=== PATIENT | male | born 1935 | race Caucasian/White ===

== ENCOUNTER 2021-05-16 15:00 | Inpatient (IN) ==
[2021-05-16] MEDS ORDERED: IOPAMIDOL 100 ML BOTTLE IV ONE ×2 (15:01→18:24)
--- NOTE | 2021-05-16 16:03 | XRay Report ---
INDICATION: dyspnea TECHNIQUE: AP portable semiupright chest x-ray COMPARISON: Previous examinations dated 12/16/2020, 10/21/2017, 06/25/2015 FINDINGS:Left transvenous pacemaker leads are unchanged since previous examination Lungs:Mild bibasilar atelectasis or infiltrate. Mid and upper lungs are negative. No parenchymal consolidation or mass. Heart, vascular:No significant cardiomegaly. Pulmonary vascularity is normal. No pulmonary edema or pulmonary congestion Mediastinum, arash:No mediastinal widening. No hilar mass Pleura:No pleural fluid. No pleural-based mass or calcification Skeletal:Negative. IMPRESSION: 1. Mild right basilar atelectasis or infiltrate 2. Otherwise negative AP chest x-ray Interpreted and Authenticated by: Hilaroi Triana 05/16/21
[2021-05-16 16:13] LABS: Basophils # (Auto) 0.03 K/mcL (0.00-0.30); Basophils % (Auto) 0.5 % (0.0-2.0); Eosinophils # (Auto) 0 K/mcL (0.00-0.70); Eosinophils % (Auto) 0 % (0.0-7.0); Hematocrit 37.5 % (40.1-51.0); Hemoglobin 13.1 g/dL (13.7-17.5); Lymphocytes % (Auto) 21.2 % (15.5-49.0); Mean Cell Volume 93.3 fL (80.0-100.0); Mean Corpuscular HGB Conc 34.9 g/dL (31.0-36.0); Monocytes % (Auto) 17.7 % (1.0-12.0); Neutrophils % (Auto) 60.6 % (38.0-78.0); Platelet Count 166 K/mcL (140-440); RBC 4.02 M/mcL (4.63-6.08); Red Cell Distribution Width 12.4 % (11.5-14.5); WBC 5.7 K/mcL (4.5-11.0)
[2021-05-16 16:36] LABS: ALT/SGPT 10 U/L (<40); AST/SGOT 17 U/L (<40); Albumin 3.3 gm/dL (3.2-5.2); Alkaline Phosphatase 39 U/L (39-117); Bilirubin,Total 0.2 mg/dL (0.1-1.0); Blood Urea Nitrogen 10 mg/dL (8-23); Calcium 8.8 mg/dL (8.6-10.4); Carbon Dioxide 24 mmol/L (22-30); Chloride 91 mmol/L (96-108); Globulin 3.4 gm/dL (2.2-3.7); Glomerular Filtration Rate 61; Glucose 89 mg/dL (70-105)
[2021-05-16] MEDS ORDERED: DEXAMETHASONE 4 MG TABLET PO ONE (16:37)
[2021-05-16] MEDS ORDERED: 0.9 % SODIUM CHLORIDE 1,000 ML IV ONE (16:37)
--- NOTE | 2021-05-16 17:00 | Emergency Department Note ---
HPI General Chief complaint: Cold/Flu Symptoms Stated complaint: body aches, cough Time Seen by Provider: 05/16/21 15:02 Source: patient Mode of arrival: ambulatory Limitations: no limitations History of Present Illness HPI Narrative: Narrative: 86-year-old male with history of hypertension, presumed atrial fibrillation based on his medications and permanent pacemaker, presents to the emergency department for evaluation of cough and body aches for the past 3 to 4 days. He denies any definite fever or chills. He does have some very mild shortness of breath when he is coughing. He denies abdominal pain or nausea. He has had Hiri vaccination, [employer] several months ago. He does have some mild GI upset, no radha abdominal pain nausea or vomiting Related Data Home Medications Medication Instructions Recorded Confirmed melatonin 3 mg tablet 3 mg PO HS PRN 01/17/17 04/29/21 multivitamin 1 tab-cap PO QDAY 01/17/17 04/29/21 apixaban 5 mg tablet 5 mg PO BID 06/15/18 04/29/21 omeprazole 20 mg capsule,delayed 20 mg PO QDAY 04/03/19 04/29/21 release Previous Rx's Medication Instructions Recorded diltiazem HCl 120 mg capsule,24 120 mg PO QDAY #90 cap 05/06/20 hr,extended release tamsulosin 0.4 mg capsule 0.4 mg PO QDAY #90 cap 03/17/21 Venessa Stim See Rx Instructions .ROUTE 04/29/21 .COMPLEX #1 cap Allergies Allergy/AdvReac Type Severity Reaction Status Date / Time codeine Allergy Unknown Itching Verified 04/29/21 14:12 Review of Systems ROS ROS Narrative: Narrative: All systems ED: reviewed and negative except as stated. PFS Narrative Patient History Narrative: Narrative: Medical/Surgical/Family History All Active Problems (Updated 05/16/21 @ 17:00 by Sd Wright DO) Pneumonia due to 2019 novel coronavirus (Acute) Acute hyponatremia (Acute) Hyperthyroidism (Acute) Syncope (Acute) CKD (chronic kidney disease) (Acute) Annual physical exam (Acute) Medicare annual wellness visit, subsequent (Acute) Bronchitis (Acute) Hx of tonsillectomy (Acute) S/P cardiac pacemaker procedure (Acute) History of lumbar surgery (Acute) History of right knee joint replacement (Acute) History of left knee replacement (Acute) Hx of inguinal hernia repair (Acute) Hx of adenoidectomy (Acute) Sinoatrial node dysfunction (Chronic) Palpitations (Chronic) Osteoarthritis (Chronic) Hypertension, essential (Chronic) Hyperlipemia (Chronic) Hearing loss (Chronic) Gout (Chronic 09/13/14) Gastroesophageal reflux (Chronic) Gastritis (Chronic 10/14/14) Hx of colonic polyps (Chronic) Bladder neck obstruction (Chronic) Atrial fibrillation (Chronic) Medical History Annual physical exam Atrial fibrillation Bladder neck obstruction CKD (chronic kidney disease) Gastritis (10/14/14) Gastroesophageal reflux Gout (09/13/14) Hearing loss Hx of colonic polyps Hyperlipemia Hypertension, essential Hyperthyroidism Medicare annual wellness visit, subsequent Osteoarthritis Palpitations Sinoatrial node dysfunction Syncope Surgical History History of left knee replacement History of lumbar surgery History of right knee joint replacement Hx of adenoidectomy Hx of inguinal hernia repair Hx of tonsillectomy S/P cardiac pacemaker procedure 10/2010 [facility] ([facility]) Family History none listed Diabetes mellitus father Essential hypertension Malignant neoplasm of prostate Cerebrovascular accident (CVA) mother Transient cerebral ischemia Social History Smoking Status: Former smoker Alcohol Intake Frequency: 2+ drinks per day Exam Narrative Narrative: Narrative: General Limitations: no limitations General appearance: Present alert Head Head: Present atraumatic and normocephalic Eye Eye: Present normal appearance and EOMI ENT ENT: Present normal exam and mucous membranes moist Neck Neck: Present normal inspection and full ROM Chest Chest: Present normal inspection and symmetric chest wall rise Respiratory Respiratory: Present normal lung sounds bilaterally Cardiovascular Cardiovascular: Present regular rate and normal rhythm Adbominal Abdominal: Present soft; Absent tenderness Extremities Extremities: Present normal inspection and full ROM Neurological Neurological: Present alert, oriented X3 and normal gait Psychiatric Psychiatric: Present normal affect and normal mood Skin Skin: Present warm (WNL) and dry Course Vital Signs Vital signs: Vital Signs Temperature 98.6 F 05/16/21 15:01 Pulse Rate 68 05/16/21 15:01 Respiratory Rate 16 05/16/21 15:01 Blood Pressure 126/70 05/16/21 15:01 Pulse Oximetry (%) 96 05/16/21 15:01 Temperature 98.6 F 05/16/21 15:01 Pulse Rate 70 05/16/21 16:32 Respiratory Rate 18 05/16/21 16:32 Blood Pressure 118/68 05/16/21 16:32 Pulse Oximetry (%) 96 05/16/21 16:32 [facility] MDM Narrative Medical decision making narrative: Narrative: Patient is overall well-appearing, but has borderline oxygen saturation at about 93% on room air. Will test for Covid, obtain baseline labs, chest x-ray. Covid testing was positive, he was found to be moderately hyponatremic with a sodium of 124. He was given a liter of fluid and dexamethasone for borderline hypoxia. Will place in observation to monitor his status Lab Data Result diagrams: 05/16/21 15:28 05/16/21 15:28 Labs: Lab Results 05/16/21 05/16/21 05/16/21 Range/Units 15:28 15:28 15:28 WBC 5.7 (4.5-11.0) K/mcL RBC 4.02 L (4.63-6.08) M/mcL Hgb 13.1 L (13.7-17.5) g/dL Hct 37.5 L (40.1-51.0) % MCV 93.3 (80.0-100.0) fL MCH 32.6 (26.0-34.0) pg MCHC 34.9 (31.0-36.0) g/dL RDW 12.4 (11.5-14.5) % Plt Count 166 (140-440) K/mcL MPV 10.0 (7.4-10.4) fL Neut % (Auto) 60.6 (38.0-78.0) % Lymph % (Auto) 21.2 (15.5-49.0) % [place] % (Auto) 17.7 H (1.0-12.0) % Eos % (Auto) 0 (0.0-7.0) % Baso % (Auto) 0.5 (0.0-2.0) % Lymph # (Auto) 1.20 L (1.50-4.80) K/mcL [place] # (Auto) 1.00 H (0.10-0.90) K/mcL Eos # (Auto) 0 (0.00-0.70) K/mcL Baso # (Auto) 0.03 (0.00-0.30) K/mcL Absolute Neutrophils 3.42 (1.80-8.00) K/mcL D-Dimer 2.97 H (0.27-0.50) ug/mL Sodium 124 L (133-145) mmol/L Potassium 3.6 (3.3-5.1) mmol/L Chloride 91 L (96-108) mmol/L Carbon Dioxide 24 (22-30) mmol/L Anion Gap 9.0 (8.0-16.0) BUN 10 (8-23) mg/dL Creatinine 1.1 (0.7-1.2) mg/dL GFR Calculation 61 Glucose 89 (70-105) mg/dL Calcium 8.8 (8.6-10.4) mg/dL Total Bilirubin 0.2 (0.1-1.0) mg/dL AST 17 (<40) U/L ALT 10 (<40) U/L Alkaline Phosphatase 39 (39-117) U/L Troponin T (<0.03) ng/mL Total Protein 6.7 (5.9-8.4) gm/dL Albumin 3.3 (3.2-5.2) gm/dL Globulin 3.4 (2.2-3.7) gm/dL Albumin/Globulin Ratio 1.0 (1.0-2.3) 05/16/21 Range/Units 15:28 WBC (4.5-11.0) K/mcL RBC (4.63-6.08) M/mcL Hgb (13.7-17.5) g/dL Hct (40.1-51.0) % MCV (80.0-100.0) fL MCH (26.0-34.0) pg MCHC (31.0-36.0) g/dL RDW (11.5-14.5) % Plt Count (140-440) K/mcL MPV (7.4-10.4) fL Neut % (Auto) (38.0-78.0) % Lymph % (Auto) (15.5-49.0) % [place] % (Auto) (1.0-12.0) % Eos % (Auto) (0.0-7.0) % Baso % (Auto) (0.0-2.0) % Lymph # (Auto) (1.50-4.80) K/mcL [place] # (Auto) (0.10-0.90) K/mcL Eos # (Auto) (0.00-0.70) K/mcL Baso # (Auto) (0.00-0.30) K/mcL Absolute Neutrophils (1.80-8.00) K/mcL D-Dimer (0.27-0.50) ug/mL Sodium (133-145) mmol/L Potassium (3.3-5.1) mmol/L Chloride (96-108) mmol/L Carbon Dioxide (22-30) mmol/L Anion Gap (8.0-16.0) BUN (8-23) mg/dL Creatinine (0.7-1.2) mg/dL GFR Calculation Glucose (70-105) mg/dL Calcium (8.6-10.4) mg/dL Total Bilirubin (0.1-1.0) mg/dL AST (<40) U/L ALT (<40) U/L Alkaline Phosphatase (39-117) U/L Troponin T < 0.01 (<0.03) ng/mL Total Protein (5.9-8.4) gm/dL Albumin (3.2-5.2) gm/dL Globulin (2.2-3.7) gm/dL Albumin/Globulin Ratio (1.0-2.3) ED POC Tests ED POC Tests: KAYLEE - SARS Antigen Positive EKG Data EKG #1: EKG attestation: Yes I reviewed and interpreted this EKG. EKG results narrative: Sinus rhythm at a rate of 63. Normal axis. QTC 418. First-degree AV block. Right bundle branch block. Appropriate ST discordance. No acute ST-T changes. Abnormal EKG. Discharge Plan Patient/Caregiver Discharge Instructions Pt seen by NUCLEAR POWERPLANT SUPERVISOR/PA only: No Clinical Impression: Pneumonia due to 2019 novel coronavirus, Acute hyponatremia Patient Disposition: Xfer As Inpt ([facility]) Follow up with: Emil Hernadez MD [Primary Care Provider] - Prescriptions: No Action diltiazem HCl [Taztia XT] 120 mg capsule,extended release 24 hr 120 mg PO QDAY Qty: 90 RF: 3 tamsulosin [Flomax] 0.4 mg capsule 0.4 mg PO QDAY Qty: 90 RF: 1 melatonin 3 mg tablet 3 mg PO HS PRNRF: 0 multivitamin tablet 1 tab-cap PO QDAY RF: 0 apixaban [Eliquis] 5 mg tablet 5 mg PO BID RF: 0 omeprazole 20 mg capsule,delayed release(DR/EC) 20 mg PO QDAY RF: 0 Venessa Stim See Rx Instructions .ROUTE .COMPLEX Qty: 1 RF: 0
--- NOTE | 2021-05-16 17:15 | Cat Scan Report ---
INDICATION: inc dimer, covid COMPARISON: Chest x-rays dated 05/16/2021, 12/16/2020, 10/21/2017 TECHNIQUE: Axial images obtained through the chest. 80ml Isovue 370 injected intravenously, and scanning was performed during pulmonary arterial phase. Sagittally and coronally reformatted images were obtained. MIP reformatted images. FINDINGS: Lungs:There is mild centrilobular emphysema. There are groundglass infiltrates at both lung bases. Appearance is nonspecific. This may be due to hypoexpansion at both lung bases. Covid pneumonia is considered less likely. Mediastinum, vascular:Main pulmonary artery, right pulmonary artery, left pulmonary artery are negative. No intraluminal filling defects. No lobar, segmental, or subsegmental emboli. Thoracic aorta is negative. No aneurysmal dilatation No pathologic mediastinal or hilar adenopathy Heart:No cardiomegaly. No pericardial effusion. There is mild reflux of contrast material into the inferior vena cava Pleura:No significant pleural effusion. No pleural mass or calcification Axilla, supraclavicular regions, chest wall:No pathologic axillary or supraclavicular adenopathy. Musculoskeletal:Negative thoracic spine. No compression fracture. No lytic lesion. No rib or sternal lesions Upper Abdomen:Negative IMPRESSION: 1. Negative pulmonary CTA 2. Mild centrilobular emphysema 3. Bilateral lower lobe ground glass infiltrates are probably related to atelectasis. Covid pneumonia is possible The exam was performed using radiation dose optimization techniques including, but not limited to, automated exposure control, adjustment of the mA and/or kV according to patient size and use of iterative reconstruction technique. Interpreted and Authenticated by: Hilario Triana 05/16/21
--- NOTE | 2021-05-16 17:22 | Internal Med History&Physical ---
HPI History of Present Illness Patient information: Note initiated : 05/16/21 at 5:14 pm Service Date, if different from initiated Date: [] Patient: Leander Galan 86 y/o M admitted on for Body Aches, Cough. Chief Complaint: [hyponatremia] History of present illness: Mr. Galan is a 86 year old M history of atrial fibrillation, BPH, presenting with 4-day history of nonproductive cough, general body weakness, and body aches. He is vaccinated against Covid pneumonia. Over the past 4 days, he is committing of nonproductive cough, general body weakness, and body aches. He denies any shortness of breath or respiratory wheezings. He denies any chest pain. He denies any subjective fever or shaking chills or diaphoresis. He denies any GI symptoms such as nausea, vomiting, diarrhea, or constipation's. He decided to come to our ED today to test for Covid pneumonia. He has been tested positive for Covid pneumonia. Vital signs at ED presentations within normal limits and he is currently in sinus rhythm. Labs significant for lack of leukocytosis with WBC 5.7. Chemistry significant for hyponatremia with serum sodium level 125 with baseline 135. Chest x-ray unremarkable. He is currently tolerating room air with oxygen saturations low to mid 90s. Constitutional Constitutional: Present weakness; Absent chills, excessive sweating, fatigue and fever(s) EENT Eyes: Absent blurry vision, change in vision, loss of vision and other visual disturbances Ears: Absent decreased hearing and tinnitus Nose, mouth and throat: Absent abnormal hearing, dry mouth, headache(s), nasal congestion and sore throat Cardiovascular Cardiovascular: Absent chest pain, chest pain at rest, edema, irregular heart rhythm and palpatations Respiratory Respiratory: Present cough; Absent dyspnea, wheezing and excessive phlegm production Gastrointestinal Gastrointestinal: Absent abdominal pain, constipation, diarrhea, nausea and vomiting Musculoskeletal Musculoskeletal: Present muscle cramps; Absent back pain, deformity, limited range of motion, muscle weakness and numbness Integumentary Integumentary: Absent lesions, rash and wounds Neurological Neurological: Absent focal weakness, headache(s) and numbness Psychiatric Psychiatric: Absent anxiety, depression and hallucinations PFSH PFSH All Active Problems (Updated 05/16/21 @ 17:19 by Adryan Tejeda MD) BPH (benign prostatic hyperplasia) (Acute) Pneumonia due to 2019 novel coronavirus (Acute) Acute hyponatremia (Acute) Hyperthyroidism (Acute) Syncope (Acute) CKD (chronic kidney disease) (Acute) Annual physical exam (Acute) Medicare annual wellness visit, subsequent (Acute) Bronchitis (Acute) Hx of tonsillectomy (Acute) S/P cardiac pacemaker procedure (Acute) History of lumbar surgery (Acute) History of right knee joint replacement (Acute) History of left knee replacement (Acute) Hx of inguinal hernia repair (Acute) Hx of adenoidectomy (Acute) Sinoatrial node dysfunction (Chronic) Palpitations (Chronic) Osteoarthritis (Chronic) Hypertension, essential (Chronic) Hyperlipemia (Chronic) Hearing loss (Chronic) Gout (Chronic 09/13/14) Gastroesophageal reflux (Chronic) Gastritis (Chronic 10/14/14) Hx of colonic polyps (Chronic) Bladder neck obstruction (Chronic) Atrial fibrillation (Chronic) Medical History Annual physical exam Atrial fibrillation Bladder neck obstruction CKD (chronic kidney disease) Gastritis (10/14/14) Gastroesophageal reflux Gout (09/13/14) Hearing loss Hx of colonic polyps Hyperlipemia Hypertension, essential Hyperthyroidism Medicare annual wellness visit, subsequent Osteoarthritis Palpitations Sinoatrial node dysfunction Syncope Surgical History History of left knee replacement History of lumbar surgery History of right knee joint replacement Hx of adenoidectomy Hx of inguinal hernia repair Hx of tonsillectomy S/P cardiac pacemaker procedure 10/2010 [facility]) Family History none listed Diabetes mellitus father Essential hypertension Malignant neoplasm of prostate Cerebrovascular accident (CVA) mother Transient cerebral ischemia Social History (Updated 04/29/21 @ 14:09 by Chioma Sarah CMA) marital status: education level: high school occupational status: retired occupation: semi retired smoking status: Former smoker alcohol intake frequency: 2+ drinks per day MEDS/ALLERGIES Home Medications and Allergies Home Medications Medication Instructions Recorded Confirmed Type melatonin 3 mg tablet 3 mg PO HS PRN 01/17/17 04/29/21 History multivitamin 1 tab-cap PO QDAY 01/17/17 04/29/21 History apixaban 5 mg tablet 5 mg PO BID 06/15/18 04/29/21 History omeprazole 20 mg capsule,delayed 20 mg PO QDAY 04/03/19 04/29/21 History release diltiazem HCl 120 mg capsule,24 120 mg PO QDAY #90 cap 05/06/20 04/29/21 Rx hr,extended release tamsulosin 0.4 mg capsule 0.4 mg PO QDAY #90 cap 03/17/21 04/29/21 Rx Venessa Stim See Rx Instructions .ROUTE 04/29/21 04/29/21 Rx .COMPLEX #1 cap Allergies Allergy/AdvReac Type Severity Reaction Status Date / Time codeine Allergy Unknown Itching Verified 04/29/21 14:12 EXAM Constitutional Vitals: Temp Pulse Resp BP Pulse Ox 37.0 C 70 18 118/68 96 05/16/21 15:01 05/16/21 16:32 05/16/21 16:32 05/16/21 16:32 05/16/21 16:32 General appearance: cooperative and no acute distress Head Head exam: Present atraumatic and normocephalic Eye Eye exam: Present EOMI and PERRL ENT ENT exam: Present mucous membranes moist and normal external ear exam; Absent normal exam Additional comments: bilateral hard of hearing Neck Neck exam: Present normal inspection; Absent lymphadenopathy, tenderness and thyromegaly Respiratory Respiratory exam: Present rhonchi; Absent accessory muscle use, respiratory distress and wheezes Cardiovascular Cardiovascular exam: Present normal rate and rhythm; Absent JVD GI/Abdominal GI/Abdominal exam: Present normal bowel sounds and soft; Absent organomegaly and tenderness Rectal Rectal exam: Present deferred Extremities Exam Extremities exam: Present full ROM, normal capillary refill and normal inspe ction; Absent tenderness Neurological Exam Neurological exam: Present alert, CN II-XII intact and oriented X3; Absent motor sensory deficit Psychiatric Psychiatric exam: Present normal affect and normal mood; Absent anxious and depressed Skin Skin exam: Present dry and intact DATA Data Completed and Pending Labs: Labs from last 24 hours 05/16/21 05/16/21 05/16/21 15:28 15:28 15:28 WBC RBC Hgb Hct MCV MCH MCHC RDW Plt Count MPV Neut % (Auto) Lymph % (Auto) [place] % (Auto) Eos % (Auto) Baso % (Auto) Lymph # (Auto) [place] # (Auto) Eos # (Auto) Baso # (Auto) Absolute Neutrophils D-Dimer 2.97 H Sodium 124 L Potassium 3.6 Chloride 91 L Carbon Dioxide 24 Anion Gap 9.0 BUN 10 Creatinine 1.1 GFR Calculation 61 Glucose 89 Calcium 8.8 Total Bilirubin 0.2 AST 17 ALT 10 Alkaline Phosphatase 39 Troponin T < 0.01 Total Protein 6.7 Albumin 3.3 Globulin 3.4 Albumin/Globulin Ratio 1.0 05/16/21 15:28 WBC 5.7 RBC 4.02 L Hgb 13.1 L Hct 37.5 L MCV 93.3 MCH 32.6 MCHC 34.9 RDW 12.4 Plt Count 166 MPV 10.0 Neut % (Auto) 60.6 Lymph % (Auto) 21.2 [place] % (Auto) 17.7 H Eos % (Auto) 0 Baso % (Auto) 0.5 Lymph # (Auto) 1.20 L [place] # (Auto) 1.00 H Eos # (Auto) 0 Baso # (Auto) 0.03 Absolute Neutrophils 3.42 D-Dimer Sodium Potassium Chloride Carbon Dioxide Anion Gap BUN Creatinine GFR Calculation Glucose Calcium Total Bilirubin AST ALT Alkaline Phosphatase Troponin T Total Protein Albumin Globulin Albumin/Globulin Ratio A/P Assessment and plan (1) Acute hyponatremia: Status: Acute (2) Pneumonia due to 2019 novel coronavirus: Status: Acute (3) Atrial fibrillation: Status: Chronic (4) Gastroesophageal reflux: Status: Chronic (5) BPH (benign prostatic hyperplasia): Status: Acute Narrative A/P Narrative: Assessment and plan: 1. Acute hyponatremia: Inpatient MedSurg Differential diagnosis: Secondary to Covid infection versus endocrine cause suggest SIADH versus medication side effect but the patient is not currently on any obvious culprits such as diuretics or SSRI TSH Urine osmolality and urine sodium level to rule out SIADH Normal saline at 75 cc/h BMP every 8 hour to trend serum sodium level with goals of corrections 8-10 points over the first 24 hours in order to avoid neurological consequences such as central pontine myelinolysis 2. Covid pneumonia: Patient is currently tolerating room air with acceptable SPO2 level, thus no Covid specific treatment such as remdesivir or dexamethasone indicated at this point Continue isolation protocols with our prone and contact isolation Robitussin-DM as needed cough Tylenol as needed fever DuoNeb nebulizer as needed wheezing 3. Stable atrial fibrillation: Continue diltiazem orally from home regiment Continue Eliquis 4. History of BPH: Continue Flomax 5. GERD: Continue oral PPI from home regimen GI prophylaxis: Continue oral PPI from home regimen DVT prophylaxis: Eliquis CODE STATUS: Full code Prognosis: Stable Dispositions: Inpatient MedSurg Time Spent With Patient Time: Total time spent is greater than 50% in coordination of care (as documented) at patient's floor/unit and/or counseling patient: Total time spent with greater than 50% in coordination of care (as documented) at patient's floor/unit and/or counseling patient:: 25 - 35 minutes
[2021-05-16] MEDS ORDERED: ONDANSETRON 4 MG/2 ML VIAL IV PRN (18:24)
[2021-05-16] MEDS ORDERED: ACETAMINOPHEN 325 MG TABLET PO PRN (18:24)
[2021-05-16] MEDS ORDERED: guaiFENesin/DEXTROMETHORPHAN ORAL SOL PO PRN (18:24)
[2021-05-16] MEDS ORDERED: MELATONIN 3 MG TABLET PO PRN (18:24)
[2021-05-16] MEDS ORDERED: ZOLPIDEM 5 MG TABLET PO PRN (18:24)
[2021-05-16] MEDS ORDERED: IPRATROPIUM/ALBUTEROL 3 ML AMPUL.NEB NEB PRN (18:24)
[2021-05-16] MEDS: 0.9 % SODIUM CHLORIDE 1,000 ML IV SCH (18:52)
[2021-05-16 19:10] LABS: Thyroid Stimulating Hormone 1.64 uIU/mL (0.27-5.01)
[2021-05-16 19:31] LABS: Sodium, Urine Random 45 mmol/L
[2021-05-16 19:58] LABS: Osmolality,Urine 345 mOSM/kg (80-1000)
[2021-05-16] MEDS ORDERED: SENNOSIDES 1 TABLET PO SCH (21:00)
[2021-05-16 22:32] LABS: Blood Urea Nitrogen 10 mg/dL (8-23); Calcium 8.7 mg/dL (8.6-10.4); Carbon Dioxide 23 mmol/L (22-30); Chloride 94 mmol/L (96-108); Glomerular Filtration Rate 69; Glucose 122 mg/dL (70-105)
[2021-05-16] MEDS: DOCUSATE SODIUM 100 MG CAPSULE PO SCH (22:36)
[2021-05-16] MEDS: 0.9 % SODIUM CHLORIDE 10 ML SYRINGE IV SCH (22:36)
[2021-05-16] MEDS: APIXABAN 5 MG TABLET PO SCH (22:36)
[2021-05-17] MEDS: 0.9 % SODIUM CHLORIDE 10 ML SYRINGE IV SCH (05:31)
[2021-05-17 07:44] LABS: ALT/SGPT 12 U/L (<40); AST/SGOT 19 U/L (<40); Albumin 3.3 gm/dL (3.2-5.2); Albumin/Globulin Ratio 0.9 (1.0-2.3); Alkaline Phosphatase 38 U/L (39-117); Bilirubin,Total 0.2 mg/dL (0.1-1.0); Blood Urea Nitrogen 11 mg/dL (8-23); Calcium 8.9 mg/dL (8.6-10.4); Carbon Dioxide 23 mmol/L (22-30); Chloride 97 mmol/L (96-108); Globulin 3.7 gm/dL (2.2-3.7); Glomerular Filtration Rate 69; Glucose 137 mg/dL (70-105)
[2021-05-17] MEDS: APIXABAN 5 MG TABLET PO SCH (08:08)
[2021-05-17] MEDS: 0.9 % SODIUM CHLORIDE 1,000 ML IV SCH (08:08)
[2021-05-17] MEDS: DOCUSATE SODIUM 100 MG CAPSULE PO SCH (08:09)
[2021-05-17] MEDS ORDERED: MULTIVIT,THER IRON,CA,FA & MIN 1 TABLET PO SCH (09:00)
[2021-05-17] MEDS ORDERED: DILTIAZEM 120 MG CAP.XL.24H PO SCH (09:00)
[2021-05-17] MEDS ORDERED: TAMSULOSIN 0.4 MG CAPSULE PO SCH (09:00)
[2021-05-17] MEDS ORDERED: OMEPRAZOLE 20 MG CAPSULE PO SCH (09:00)
--- NOTE | 2021-05-17 11:40 | Discharge Summary ---
Discharge Provider Provider Patient information: Note initiated : 05/17/21 at 11:38 am Service Date, if different from initiated Date: [] Patient: Leander Galan 86 y/o M admitted on 05/16/21 for Body Aches, Cough. Chief Complaint: [hyponatremia] History of present illness: Mr. Galan is a 86 year old M history of atrial fibrillation, BPH, presenting with 4-day history of nonproductive cough, general body weakness, and body aches. He is vaccinated against Covid pneumonia. Over the past 4 days, he is committing of nonproductive cough, general body weakness, and body aches. He denies any shortness of breath or respiratory wheezings. He denies any chest pain. He denies any subjective fever or shaking chills or diaphoresis. He denies any GI symptoms such as nausea, vomiting, diarrhea, or constipation's. He decided to come to our ED today to test for Covid pneumonia. He has been tested positive for Covid pneumonia. Vital signs at ED presentations within normal limits and he is currently in sinus rhythm. Labs significant for lack of leukocytosis with WBC 5.7. Chemistry significant for hyponatremia with serum sodium level 125 with baseline 135. Chest x-ray unremarkable. He is currently tolerating room air with oxygen saturations low to mid 90s. Date of admission: 05/16/21 17:56 Discharge date: 05/17/21 Primary care physician: Emil Hernadez MD Consults: 05/16/21 Consult to Physician [CONS] Stat Comment: Consulting Provider: Adryan Tejeda Reason For Exam: Physician to Consult Discharge Meds Discharge Medications Home Medications melatonin 3 mg tablet 3 mg PO HS PRN 01/17/17 [History Confirmed 05/17/21 Last Taken 05/15/21] multivitamin 1 tab-cap PO QDAY 01/17/17 [History Confirmed 05/17/21 Last Taken 05/16/21 08:00] apixaban 5 mg tablet 5 mg PO BID 06/15/18 [History Confirmed 05/17/21 Last Taken 05/16/21 08:00] omeprazole 20 mg capsule,delayed release 20 mg PO QDAY 04/03/19 [History Confirmed 05/17/21 Last Taken 05/16/21 08:00] diltiazem HCl 120 mg capsule,24 hr,extended release 120 mg PO QDAY #90 cap 05/06/20 [Rx Confirmed 05/17/21 Last Taken 05/16/21 08:00] tamsulosin 0.4 mg capsule 0.4 mg PO QDAY #90 cap 03/17/21 [Rx Confirmed 05/17/21 Last Taken 05/16/21 08:00] Venessa Stim See Rx Instructions .ROUTE .COMPLEX #1 cap 04/29/21 [Rx Confirmed 05/17/21 Last Taken Unknown] COURSE Hospital Course Hospital course: Patient was admitted on May 16, 2021 for hyper natremia with serum sodium level of 124. Normal saline at 75 cc/h infusions was implemented alongside with frequent BMP checked to ensure that the rate of correction was within the goals of 8-10 points over the first 24 hours. By the next day, his serum sodium level improved to 131, and otherwise remained to be clinically stable. TSH level normal. Urine osmolality 345. Random urine sodium level 45. Decision made to discharge patient home with instruction to follow-up with primary care physician within 2 weeks. All questions were answered prior to patient being physically discharged. Patient improved sooner than expectations that is why he was discharged on day to hospitalizations. Discharge diagnosis: hyponatremia Time Spent with Patient Time attestation: Total time spent providing and/or coordinating discharge services: Patient was admitted on May 16, 2021 for hyper natremia with serum sodium level of 124. Normal saline at 75 cc/h infusions was implemented alongside with frequent BMP checked to ensure that the rate of correction was within the goals of 8-10 points over the first 24 hours. By the next day, his serum sodium level improved to 131, and otherwise remained to be clinically stable. TSH level normal. Urine osmolality 345. Random urine sodium level 45. Decision made to discharge patient home with instruction to follow-up with primary care physician within 2 weeks. All questions were answered prior to patient being physically discharged. Patient improved sooner than expectations that is why he was discharged on day to hospitalizations. EXAM Constitutional Vitals: Temp Pulse Resp BP Pulse Ox 37.2 C 73 16 129/76 94 05/17/21 11:32 05/17/21 11:32 05/17/21 11:32 05/17/21 11:32 05/17/21 11:32 General appearance: cooperative and no acute distress Head Head exam: Present atraumatic and normocephalic Eye Eye exam: Present EOMI and PERRL ENT ENT exam: Present mucous membranes moist, normal exam and normal external ear exam Neck Neck exam: Present normal inspection; Absent lymphadenopathy, tenderness and thyromegaly Respiratory Respiratory exam: Absent accessory muscle use, respiratory distress and wheezes Cardiovascular Cardiovascular exam: Present normal rate and rhythm; Absent JVD GI/Abdominal GI/Abdominal exam: Present normal bowel sounds and soft; Absent organomegaly and tenderness Rectal Rectal exam: Present deferred Extremities Exam Extremities exam: Present full ROM, normal capillary refill and normal inspection; Absent tenderness Neurological Exam Neurological exam: Present alert, CN II-XII intact and oriented X3; Absent motor sensory deficit Psychiatric Psychiatric exam: Present normal affect and normal mood; Absent anxious and depressed Skin Skin exam: Present dry and intact Discharge Data Data Completed and Pending Labs on day of discharge: Labs from last 24 hours 05/17/21 05/16/21 05/16/21 05:37 21:35 17:35 WBC RBC Hgb Hct MCV MCH MCHC RDW Plt Count MPV Neut % (Auto) Lymph % (Auto) [place] % (Auto) Eos % (Auto) Baso % (Auto) Lymph # (Auto) [place] # (Auto) Eos # (Auto) Baso # (Auto) Absolute Neutrophils D-Dimer Sodium 131 L 124 L Potassium 4.1 4.2 Chloride 97 94 L Carbon Dioxide 23 23 Anion Gap 11.0 7.0 L BUN 11 10 Creatinine 1.0 1.0 GFR Calculation 69 69 Glucose 137 H 122 H Calcium 8.9 8.7 Total Bilirubin 0.2 AST 19 ALT 12 Alkaline Phosphatase 38 L Troponin T Total Protein 7.0 Albumin 3.3 Globulin 3.7 Albumin/Globulin Ratio 0.9 L TSH Urine Osmolality 345 Ur Random Sodium 45 05/16/21 05/16/21 05/16/21 15:28 15:28 15:28 WBC RBC Hgb Hct MCV MCH MCHC RDW Plt Count MPV Neut % (Auto) Lymph % (Auto) [place] % (Auto) Eos % (Auto) Baso % (Auto) Lymph # (Auto) [place] # (Auto) Eos # (Auto) Baso # (Auto) Absolute Neutrophils D-Dimer Sodium 124 L Potassium 3.6 Chloride 91 L Carbon Dioxide 24 Anion Gap 9.0 BUN 10 Creatinine 1.1 GFR Calculation 61 Glucose 89 Calcium 8.8 Total Bilirubin 0.2 AST 17 ALT 10 Alkaline Phosphatase 39 Troponin T < 0.01 Total Protein 6.7 Albumin 3.3 Globulin 3.4 Albumin/Globulin Ratio 1.0 TSH 1.64 Urine Osmolality Ur Random Sodium 05/16/21 05/16/21 15:28 15:28 WBC 5.7 RBC 4.02 L Hgb 13.1 L Hct 37.5 L MCV 93.3 MCH 32.6 MCHC 34.9 RDW 12.4 Plt Count 166 MPV 10.0 Neut % (Auto) 60.6 Lymph % (Auto) 21.2 [place] % (Auto) 17.7 H Eos % (Auto) 0 Baso % (Auto) 0.5 Lymph # (Auto) 1.20 L [place] # (Auto) 1.00 H Eos # (Auto) 0 Baso # (Auto) 0.03 Absolute Neutrophils 3.42 D-Dimer 2.97 H Sodium Potassium Chloride Carbon Dioxide Anion Gap BUN Creatinine GFR Calculation Glucose Calcium Total Bilirubin AST ALT Alkaline Phosphatase Troponin T Total Protein Albumin Globulin Albumin/Globulin Ratio TSH Urine Osmolality Ur Random Sodium Discharge Plan Patient/Caregiver Discharge Instructions Activity: increase activity as tolerated Diet: Regular Diet Prescriptions: Continued diltiazem HCl [Taztia XT] 120 mg capsule,extended release 24 hr 120 mg PO QDAY Qty: 90 RF: 3 tamsulosin [Flomax] 0.4 mg capsule 0.4 mg PO QDAY Qty: 90 RF: 1 melatonin 3 mg tablet 3 mg PO HS PRN (Reason: sleep) RF: 0 multivitamin tablet 1 tab-cap PO QDAY RF: 0 apixaban [Eliquis] 5 mg tablet 5 mg PO BID RF: 0 omeprazole 20 mg capsule,delayed release(DR/EC) 20 mg PO QDAY RF: 0 Venessa Stim See Rx Instructions .ROUTE .COMPLEX Qty: 1 RF: 0 Follow Up Plan Follow up with: Emil Hernadez MD [Primary Care Provider] - Patient Disposition: Home, Self-Care Rehab Potential: Good I certify that the patient requires SNF services: No Overall status at discharge: patient is back to baseline Discharge Orders: Discharge Order (Routine); Ordered 05/17/21 Ordered By: Adryan FISCHER VTE Deep Vein Thrombosis/Pulmonary Embolism Present on Admission: No
--- NOTE | 2021-05-18 09:01 | EKG ---
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 Measurements Intervals [place] Rate: 63 P: 42 ID: [id number] QRS: -27 QRSD: 150 T: 20 QT: 408 QTc: 418 Interpretive Statements SINUS RHYTHM RBBB AND LAFB Electronically Signed On 05-18-2021 8:58:44 PDT by Hilario Smith M.D. /[id number]
== END 2021-05-17 14:38 | disposition home or self-care (01) | DRG 640 ==
LOC: ED 15:00 → MEDSUR 17:56
PROVIDERS: ADMIT Internal Medicine; ATTEND Internal Medicine